=== PATIENT | male | born 1950 | race Caucasian/White ===

== ENCOUNTER → 2016-10-13 | Outpatient (CLI) | payer MEDICARE, OTHER | LOC: RT 08:52 | PROVIDERS: ATTEND Internal Medicine | DX: I25.10 Atherosclerotic heart disease of native coronary artery without angina pectoris (principal) | CPT/HCPCS: 93005 ==

== ENCOUNTER 2016-12-16 21:00 | Emergency (ER) | payer MEDICARE, OTHER ==
[~2016-12-16] VITALS: Ht 185.4 cm; Wt 120.8 kg
[2016-12-16] MEDS ORDERED: meTOprolol 5 MG/5 ML (LOPRESSOR) VIAL IV ONE ×2 (21:30→21:45)
[2016-12-16 21:43] LABS: BASOPHILS % (AUTO) 0 % (0-2); EOSINOPHILS # (AUTO) 0.1 10^3uL; EOSINOPHILS % (AUTO) 2 % (0-4); LYMPHOCYTES # (AUTO) 2.1 X10^3; MEAN CORPUSCULAR HGB CONC 34.9 g/dL (31.0-37.0); MEAN CORPUSCULAR VOLUME 90 FL (80-100); MEAN PLATELET VOLUME 9.5 FL (6.0-9.5); MONOCYTES # (AUTO) 0.9 X10^3; MONOCYTES % (AUTO) 11 % (3-11); NEUTROPHILS % (AUTO) 61 % (51-67); PLATELET COUNT 205 10^3uL (150-450); WHITE BLOOD COUNT 8.11 10^3uL (4.0-11.0)
[2016-12-16 21:45] LABS: MEAN CORPUSCULAR HEMOGLOBIN 31.4 PG (26.0-34.0)
--- NOTE | 2016-12-16 21:48 | Diagnostic Imaging Report ---
INDICATION: Chest pain Portable chest 9:32 PM There are postop changes from median sternotomy surgery. Heart size and pulmonary vascularity are normal. Lungs are clear. There are no effusions or pneumothoraces. IMPRESSION: Negative chest Dictated by: Dictated on workstation # [id number]
[2016-12-16 21:55] LABS: ALBUMIN 4.4 g/dL (3.4-5.0); ALKALINE PHOSPHATASE 97 U/L (38-126); ANION GAP 18.6 MEQ/L (3-15); BUN/CREATININE RATIO 30 (10-20); CALCULATED IONIZED CALCIUM 3.8 mg/dL (3.8-4.6); TOTAL PROTEIN 7.9 g/dL (6.4-8.5)
[2016-12-16] MEDS ORDERED: ATOR40TA59 PO (22:06)
[2016-12-16] MEDS ORDERED: METO50TA7 PO (22:06)
[2016-12-16] MEDS ORDERED: EMPA25TA PO (22:06)
[2016-12-16] MEDS ORDERED: HYDR12.56 PO (22:06)
[2016-12-16] MEDS ORDERED: CLOP75TA28 PO (22:06)
[2016-12-16] MEDS ORDERED: FAMC250T2 PO (22:06)
[2016-12-16] MEDS ORDERED: NITR0.4T7 SL (22:06)
[2016-12-16] MEDS ORDERED: ENAL20TA PO (22:06)
[2016-12-16] MEDS ORDERED: METF500T4 PO (22:06)
[2016-12-16] MEDS ORDERED: INSU100I33 SC (22:06)
[2016-12-16] MEDS ORDERED: RANI150T11 PO (22:06)
[2016-12-16] MEDS ORDERED: ASPI-586 PO (22:09)
[2016-12-16] MEDS ORDERED: OMEG500C PO (22:09)
[2016-12-16] MEDS ORDERED: CHON250C PO (22:09)
[2016-12-16] MEDS ORDERED: MULT-593 PO (22:09)
[2016-12-16] MEDS ORDERED: ASPIRIN 81 MG CHEW (CHILDREN'S ASA) PO ONE (22:10)
[2016-12-16] MEDS ORDERED: NS IV 500 ML 500 ML IV SCH (22:10)
[2016-12-16] MEDS ORDERED: ADENOSINE 6 MG/2 ML (ADENOCARD) VIAL IV ONE (22:25)
--- NOTE | 2016-12-16 22:48 | NUR ---
Pt now in a NSR rate in the 70's after Adenosine 6mg IVP, pt tolerated well, Dr. Pérez at bedside, notified of pt's elevated DDimer from lab.
--- NOTE | 2016-12-16 23:34 | NUR ---
Pt back from CT, no complaints at this time
[2016-12-17 00:48] VITALS: BP 132/60
--- NOTE | 2016-12-17 08:13 | Diagnostic Imaging Report ---
PROCEDURE: CT angiography of the chest with contrast. TECHNIQUE: Multiple contiguous axial images were obtained through the chest after uneventful bolus administration of intravenous contrast. Reconstructed CTA MIP acquisitions were also performed. INDICATION: Elevated d-dimer COMPARISON: Radiograph of the chest from the same date. FINDINGS: No significant adenopathy within the chest. Postsurgical changes of a CABG. No aneurysmal dilatation of the thoracic aorta. Scattered vascular calcifications. The heart is within normal limits in size. No significant pericardial effusion. No pleural effusion. Calcified granuloma within the right lower lobe. The lungs otherwise appear clear. No pneumothorax. Tiny calcification noted within the lateral right breast, likely of little clinical significance. No significant filling defect identified within the central or segmental pulmonary arteries. Multiple punctate calcifications are identified scattered throughout the pancreas. A 1.2 cm round hypodensity is noted along the posterior aspect of the pancreatic body, series 3, image 111. The stomach is filled with enteric contents. Upper abdomen is otherwise unremarkable. No acute osseous abnormality. IMPRESSION: No evidence of a significant pulmonary embolus. Calcifications associated with the pancreas with a small hypodensity along the posterior aspect of the pancreas. Findings probably relate to chronic pancreatitis. The low-density lesion may relate to a pancreatic cyst or peripancreatic fluid collection. Cystic neoplasm not totally excluded. Comparison to prior imaging would be beneficial. If no prior imaging is available, a followup CT of the abdomen with and without contrast in 3 months is recommended for further evaluation. Additional findings as above. Agree with preliminary interpretation. Dictated by: Dictated on workstation # [id number]
== END 2016-12-17 00:40 | disposition home or self-care (01) ==
LOC: ED 21:01
DX: I47.1 Supraventricular tachycardia (principal); I25.10 Atherosclerotic heart disease of native coronary artery without angina pectoris
CPT/HCPCS: 36415; 71010; 71275; 80053; 83735; 84443; 84484; 85025; 85379; 85610; 85730; 93005; 96361; 96374; 96375; 99285; A9270; J0153; J7040; Q9967; 93010

== ENCOUNTER → 2017-01-08 | Outpatient (CLI) | payer MEDICARE, OTHER ==
[~2017-01-08] MED LIST: ASPI-586 PO; ATOR40TA59 PO; CHON250C PO; CLOP75TA28 PO; EMPA25TA PO; ENAL20TA PO; FAMC250T2 PO; HYDR12.56 PO; INSU100I33 SC; METF500T4 PO; METO50TA7 PO; MULT-593 PO; NITR0.4T7 SL; OMEG500C PO; RANI150T11 PO
--- NOTE | 2017-01-08 12:09 | Diagnostic Imaging Report ---
INDICATION: Pain in right foot and heel region for a week. EXAMINATION: Right foot dated 01/08/2017. TECHNIQUE: Three views of the right foot were performed. FINDINGS: Spurring is noted along the plantar aspect of the calcaneus. There is also spurring in the dorsum of the midfoot. There is some deformity and overall enlargement of the proximal fifth phalanx. A vague lucency in the region is noted and this is likely due to a fracture which is age-indeterminate. Correlate for any focal point tenderness. The remaining osseous structures appear intact. Minimal narrowing at the first metatarsal/phalangeal joint and first interphalangeal joint space is also noted. IMPRESSION: 1. Diffuse degenerative findings as described above with deformity of the fifth proximal phalanx, age indeterminate. If there is focal pain, this could represent an acute to subacute fracture. Correlate for point tenderness. 2. The report was faxed to the office of CORBIN Lewis, by SELENE at 12:15 PM. Dictated by: Dictated on workstation # [id number]
== END ==
LOC: RAD 11:05
PROVIDERS: ATTEND Physician Assistant Surgical
DX: M79.671 Pain in right foot (principal)

== ENCOUNTER → 2017-01-08 | Outpatient (REF) | payer MEDICARE, OTHER | LOC: LAB 11:02 | PROVIDERS: ATTEND Physician Assistant Surgical | DX: E11.9 Type 2 diabetes mellitus without complications (principal) | CPT/HCPCS: 83036 ==